=== PATIENT | female | born 1975 | race Two or more races ===

== ENCOUNTER 2018-02-06 16:46 | Emergency (ER) | payer MEDICAID ==
[~2018-02-06] VITALS: Ht 154.9 cm; Wt 124.7 kg
[2018-02-06 17:00] VITALS: BP 118/50
[2018-02-06] MEDS ORDERED: ACETAMINOPHEN 325 MG TAB PO ONE (18:15)
== END 2018-02-06 18:41 | disposition left against medical advice (07) ==
LOC: EDBD 16:46 → ER 16:46
DX: M25.552 Pain in left hip (principal); E11.9 Type 2 diabetes mellitus without complications; E07.9 Disorder of thyroid, unspecified; Z88.0 Allergy status to penicillin; Z53.29 Procedure and treatment not carried out because of patient's decision for other reasons; W18.39XA Other fall on same level, initial encounter; Y93.89 Activity, other specified; Y99.8 Other external cause status; Y92.098 Other place in other non-institutional residence as the place of occurrence of the external cause
CPT/HCPCS: 94761